=== PATIENT | female | born 1945 | race Caucasian/White ===

== ENCOUNTER 2016-11-09 08:36 | Day surgery (SDC) | payer MEDICARE ==
[2016-11-09] VITALS (8 sets, daily range): BP systolic 106–132; BP diastolic 44–84; PULSE 52–72; RESP 12–18; O2SAT 93–99
[~2016-11-09] VITALS: Ht 162.6 cm; Wt 81.6 kg
[~2016-11-09 08:36] MED LIST: ACET-171 PO; ATOR80TA PO; CALC-78 PO; CHOL100045 PO; CeFAZolin Inj 2 GM in IV Premix 1 EACH IV ONE; FLUO20CA25 PO; LEVO137T2 PO; LISI-571 PO; METF500T4 PO; OMEP20CA11 PO; OXYB10TA PO
[2016-11-09] MEDS ORDERED: MetoCLOpramide 5 mg/mL 2 mL Inj ONE (08:37)
[2016-11-09] MEDS ORDERED: Ondansetron 2 mg/mL 2 mL Inj ONE (08:37)
[2016-11-09] MEDS ORDERED: Propofol 10,000 mCg/mL 20 mL Inj ONE (08:37)
[2016-11-09] MEDS ORDERED: fentaNYL-PF 50 mCg/mL 2 mL Inj ONE (08:37)
[2016-11-09] MEDS: Lactated Ringer's 1,000 ML IV SCH ×2 (08:40→10:31)
[2016-11-09] MEDS ORDERED: Lactated Ringer's 500 ML IV PRN (10:21)
[2016-11-09] MEDS ORDERED: Lactated Ringer's 1,000 ML IV SCH (10:21)
--- NOTE | 2016-11-09 10:21 | PCM.HPANE ---
Patient Data Surgeon Admitting Provider: Attending Provider:Asad Pereira MD Primary Care Physician:Beena Aguero MD Other Provider:Helena Corcoraningham Anesthesia Reason for Visit Right Breast Atpyical Lobular Hyperplasia Ht/WT & BMI Height (Feet): 5 Height (Inches): 4.00 Weight (Kilograms): 81.647 Body Mass Index 30.00 Allergies Coded Allergies: No Known Allergies (Verified Allergy, Mild, 11/08/16) Past Anesthesia History Anesthesia History: Denies:: Abnormal Airway, Anesthesia Reactions, Difficult Intubation, Fam Anesthesia Reaction, Fam Malignant Hypertherm, Malignant Hyperthermia Diabetes History Hx Diabetes?: Yes Type of Diabetes: Type II Glycemic Control: Oral Medication Current Bedside Blood Glucose: 105 MRSA MRSA: No Medications Hypertension Medication: Yes (LISINOPRIL) Home Meds Incl Beta Madeline: No Reported Medications Cholecalciferol (Vitamin D3) (Vitamin D)1,000 Unit Capsule2,000 Unit PO DAILY # 1 BOTTLE Ref 0 11/08/16 Acetaminophen 500 Mg [id number] Mg PO Q6H PRN For Pain 11/08/16 Oxybutynin Chloride ER 10 Mg Tab.er.2410 Mg PO DAILY Ref 0 11/08/16 Fluoxetine 20 Mg Uivckve48 Mg PO DAILY Ref 0 11/08/16 Calcium Carbonate/Vitamin D3 (Calcium 500 + Vit D Caplet)1 Each Tablet1 Each PO DAILY 11/08/16 Atorvastatin (Lipitor)80 Mg Yckdkv40 Mg PO DAILY Ref 0 11/08/16 Lisinopril 5 Mg Tablet5 Mg PO DAILY #30 TABLET Ref 0 06/27/16 Levothyroxine 137 Mcg Ztgjka319 Mcg PO DAILY Ref 0 06/26/16 Metformin 500 Mg Pflpci834 Mg PO BID Ref 0 TAKES 500MG IN AM; 1000MG IN PM 06/26/16 Discontinued Reported Medications Omeprazole 20 Mg Capsule.dr20 Mg PO DAILY Ref 0 11/08/16 Oxybutynin-Expunged Drug, Do Not Renew! (Ditropan-Expunged Drug, Do Not Renew!) 5 Mg Tablet5 Mg PO DAILY 01/19/10 Omeprazole-Expunged Drug, Do Not Renew! 20 Mg Tablet.dr20 Mg PO DAILY 01/19/10 Simvastatin-Expunged Drug, Choose New Med! 80 Mg Juhkew32 Mg PO DAILY 01/19/10 FLUoxetine-Expunged Drug, Do Not Renew! 20 Mg Yycnbpn43 Mg PO DAILY 01/19/10 History HEENT History: Denies:: Abnormal Airway Difficult Intubation Hearing Problem Other HEENT Pertinent History: S/P EXTRAOCULAR MUSCLE SURGERY,ORBITAL DECOMPRESSION FOR GRAVES DISEASE Hx of Heart Problems?: Yes Cardiovascular History: Positive for:: Hypertension (HYPERLIPIDEMIA) Denies:: Heart Murmur Hx of Respiratory Problem?: No Respiratory History: Positive for:: Dyspnea (FERGUSON) Use of C-PAP Machine (JEANETTE+ W/ CPAP SLEEP STUDY 05/2009) Hx Neurologic Problems?: Yes Neurological History: Denies:: CVA Other Neurological Pertinent: PLMD/RLS Hx of GI Problems?: Yes Gastrointestinal History: Positive for:: Gastroesphageal Reflux Rectal Bleeding (HX OF COLON POLYP) Other GI Pertinent History: S/P APPY Hx of Problems?: Yes Female Hx: Positive for:: Problems with Breasts? (S/P RT BREAST BX) Denies:: Currently (S/P DX LAP FOR OVARIAN CYST) Skin History: Positive for:: History Skin Disorders? (psoriasis/HANDS) Denies:: Pressure Ulcers Hx Musculoskeletal Problems?: Yes Musculoskeletal History: Denies:: Joint Replacement Hx of Psycho/Social Problems?: Yes Psycho Social History: Positive for:: Anxiety Hx Depression Hx Surgeries?: Yes (L4-5 DECOMPRESSION,APPY,EYE MUSCLE SURG.,ORBITAL DECOMP., DX LAP,RT BREAST B) Hx Any Other Health Problems?: Yes Other History: Positive for:: Thyroid Disease (GRAVES DISEASE S/P RADIOACTIVE IODINE ABLATION) Denies:: Cancer Endocrine Disease Hospitalization History Blood Transfusions: Positive for:: Blood Transfusions Hx Diabetes: YesBedside Blood Glucose: 105 Hx Alcohol Use: YesAlcoholic Drinks Per Day: 1-2/DAY Smoking Status: Former Smoker Have You Smoked inLast 12 mo: No Stop/Bang Treated for Sleep Apnea?: Yes Do You Have a CPAP Machine?: Yes S-Snoring: Do You Snore Loudly: No T-Tired: feel tired, fatigued: No O-Obsered: Observed not breath: Yes P-Blood Pressure: treated: Yes B- Body Mass Index > 35 kg/m2: No A- Age over 50: Yes N- Neck Large Circumference: No G- Gender Male: No JEANETTE Total Score: 3 JEANETTE Risk Assessment: High Risk, =/>3 Yes Risk Assessment Category Category 1A: Patient has history of documented sleep apnea, and HAS NOT received any narcotic, sedative or anesthesia administration during this stay. Category 1B: Patient has history of documented sleep apnea, and HAS received any narcotic , sedative or anesthesia administration during this stay Category 2: Patient has SUSPECTED Obstructive Sleep Apnea, and HAS received any narcotic , sedative or anesthesia administration during this stay. Category 3: Patient has SUSPECTED Obstructive Sleep Apnea and HAS NOT received narcotic, sedative or anesthesia administration during this stay. Category 4: Outpatient in Procedural Areas with known sleep apnea or who screen positive for High Risk via the STOP/BANG questionnaire. Exam Exam Vital Signs Vital Signs Date Time Temp Pulse Resp B/P Pulse Ox O2 Delivery O2 Flow Rate FiO2 11/09/16 09:13 36.2 52 18 132/56 98 Room Air 11/09/16 09:13 CPAP/BIPAP General Appearance: Oriented X3 HEENT/AIRWAY: MP 2 Lungs: Normal Air Movement Heart: Regular Rate/Rhythm Meds/Labs/Diagnostics Admission Meds Current Medications Lactated Ringer's (Lr) 1,000 ml @ 120 mls/hr Q8H20M IV Last administered on t 08:40; Start 11/09/16 at 05:00; Stop 11/09/16 at 13:19 Bedside Blood Glucose: 105 Plan Impression Patient chart reviewed, patient interviewed and anesthestic plan with risks, benefits, and alternatives discussed, and informed consent obtained. NPO Status: water 6am ASA Physical Status: ASA2 Mod Systemic Disease Anesthetic Plan: GA Bene/Risks/Altern/Consents: Yes HP Complete Prior to Induction: Yes Shiva Tapia MD Nov 09, 2016 10:21
[2016-11-09] MEDS ORDERED: Ondansetron 2 mg/mL 2 mL Inj IVPUSH PRN (10:25)
[2016-11-09] MEDS ORDERED: MetoCLOpramide 5 mg/mL 2 mL Inj IVPUSH PRN (10:25)
[2016-11-09] MEDS ORDERED: EPHEDrine Sulfate 50 mg/mL Inj IVPUSH PRN (10:25)
[2016-11-09] MEDS ORDERED: HYDROmorphone 1 mg/mL Inj IVPUSH PRN (10:25)
[2016-11-09] MEDS ORDERED: Dexamethasone 4 mg/mL Inj IVPUSH PRN (10:25)
[2016-11-09] MEDS ORDERED: fentaNYL-PF 50 mCg/mL 2 mL Inj IVPUSH PRN (10:25)
[2016-11-09] MEDS ORDERED: Phenylephrine 10,000 mCg/mL Inj IVPUSH PRN (10:25)
[2016-11-09] MEDS ORDERED: Bupivacaine-MPF 0.5% W/EPI 30 mL Inj INFILTRATE ONE (10:30)
[2016-11-09] MEDS ORDERED: HYDROcodone-APAP 5-325 mg Tablet PO PRN (11:35)
[2016-11-09] MEDS ORDERED: Ketorolac 15 mg/mL Inj IVPUSH PRN (11:35)
--- NOTE | 2016-11-09 11:35 | PCM.DISURG ---
Surgical Discharge Instruction Date of Service Nov 09, 2016 Dates of Hospitalization Date of Hospital Admission Providers Admitting Physician: Primary Care Physician: Beena Aguero MD Attending Physician: Asad Pereira MD Discharge Diagnosis Discharge Diagnosis Right breast atypical lobular hyperplasia Diet Discharge Diet: Diabetic Activity Discharge Activity-General: No restrictions, Activity as pain allows Dressing and Incisional Care Dressing Care: Allow Steri Stripes to fall off, Remove outer dressing after 24 hrs Hygiene: May shower after (24 hours) Follow Up Plan Follow Up Plan With Dr. Pereira in surgery clinic in 2 weeks Call your provider for: Fever (over 101.5), Discharge @ incision, pus discharge Asad Pereira MD Nov 09, 2016 11:35
--- NOTE | 2016-11-09 11:39 | PCM.SURGOP ---
Surgical Operative Report Date of Service: Nov 09, 2016 Pre Operative Diagnosis Right breast atypical lobular hyperplasia Post Operative Diagnosis Same Procedure: Wire localized right partial mastectomy Surgeon and Associate Marketing Manager: Surgeon: Asad Pereira MD Assistants: Livan Angelo PA-C Indication for Procedure 71-year-old woman who had new clustered heterogeneous calcifications in the right breast 11:00 posterior depth. Stereotactic biopsy demonstrated fibrocystic change and atypical lobular hyperplasia. After discussion of risks and benefits, she agreed to proceed with wire localized right partial mastectomy to rule out underlying malignancy. Findings: The clip was successfully localized. Procedure Details Preoperatively, the patient underwent wire localization in the breast [facility]. She was then brought to the operating room where she underwent smooth induction of general anesthesia with an LMA. She was placed in the supine position with the right arm out, and was prepped and draped in wide sterile fashion. A procedural pause was performed according to the SCOAP checklist, and all were found to be in agreement. A transverse incision was made, just medial to the wire in the upper outer quadrant of the right breast. Skin flaps were raised superiorly and inferiorly. Circumferential dissection was carried out with electrocautery, using the wire as a guide. The wire was encountered superficial to the lesion, but the tip of the wire was not encountered during dissection. Right breast tissue was dissected free, oriented with suture, and a specimen radiograph was obtained. This demonstrated that the clip had been successfully localized. That tissue was sent for permanent pathology. The cavity was marked with hemoclips circumferentially. The breast parenchyma was closed with interrupted 3-0 Vicryl suture. The skin incision was closed with a running 4-0 Vicryl subcuticular stitch. Steri-Strips and sterile dressings were applied. At the end of the case all needle and sponge counts were correct 2. The patient was awakened from anesthesia without difficulty, and taken to the recovery room in satisfactory condition, having tolerated the procedure well. Complications There were no periprocedural complications identified. Surgical Specimen Removed: Yes Specimen sent to Pathology: Yes Surgical Specimen description: Right breast tissue. Anesthetic Plan: GA Grafts, Implants: None Output, Estimated Blood Loss: 30 Blood Administration during medina: No Drains: None Catheters: None copies to: Beena Aguero MD, Joshua D MD Nov 09, 2016 11:39
--- NOTE | 2016-11-09 12:31 | PCM.ANEP1 ---
Post Anesthesia Phase 1 PACU Phase 1 Assessment Date of Service: Nov 09, 2016 Vital Signs Vital Signs Date Time Temp Pulse Resp B/P Pulse Ox O2 Delivery O2 Flow Rate FiO2 11/09/16 12:01 36.0 69 15 106/44 94 Room Air 11/09/16 11:54 36.4 70 13 110/44 97 Room Air 11/09/16 11:45 66 13 107/45 99 Simple Mask 8 11/09/16 11:40 68 14 107/44 99 Simple Mask 8 11/09/16 11:35 72 13 115/46 99 Simple Mask 8 11/09/16 11:30 36.2 63 12 124/44 99 Simple Mask 8 11/09/16 09:13 36.2 52 18 132/56 98 Room Air 11/09/16 09:13 CPAP/BIPAP Anesthetic Administered: GA Level of Alertness: Awake, talking Pain: No Nausea or Vomiting: No Oxygen Delivery: Room Air Lungs: Normal Air Movement Shiva Tapia MD Nov 09, 2016 12:31
--- NOTE | 2016-11-09 12:31 | PCM.ANEP2 ---
Post Anesthesia Evaluation ASA/CMS Post Anesthesia VS in Patient's Normal Range?: Yes Resp Stable; Airway Patent?: Yes CV Function & Hydration Stable: Yes Mental Status Recovered?: Yes Pain control Satisfactory?: Yes N/V Control Satisfactory?: Yes Shiva Tapia MD Nov 09, 2016 12:31
--- NOTE | 2016-11-12 07:20 | DRSVH ---
SPECIMEN RIGHT BREAST: 11/09/2016 CLINICAL: Breast specimen. Correlation is made to exams dated: 11/09/2016 mammogram, 09/12/2016 stereotactic biopsy, 09/04/2016 marjorie mogram, 08/29/2016 mammogram, 08/22/2015 mammogram, and 09/12/2016 specimen - [facility]. A stereotactic guided biopsy specimen was imaged for the previous biopsy site located in the right b reast at 11 o'clock anterior depth. IMPRESSION: SPECIMEN The imaged specimen includes a biopsy clip and the distal portion of the localization wire. This exam was interpreted at Station ID: [id number]. Randa Guy M.D. lk/:11/09/2016 14:22:32 Additional referring physicians: WALTER ESCALERA BARBARA J. HAHBA
--- NOTE | 2016-11-12 13:13 | PATH ---
SURGICAL PATHOLOGY Attending Physician:David Kelly CASE STATUS: Signed Out PATIENT NAME: LINWOOD BALDWIN PID: [id number] : 1945 DATE COLLECTED:11/09/2016 20:49 SPECIMEN: Breast mass, oriented CLINICAL HISTORY: RIGHT BREAST ATYPICAL LOBULAR HYPERPLASIA 1). RIGHT BREAST TISSUE, SHORT SUTURE SUPERIOR, LONG SUTURE LATERAL FINAL DIAGNOSIS: Right Breast Needle Localization Excisional Specimen: Inflammatory and fibrotic changes consistent with previous biopsy. Multifocal areas of duct epithelial hyperplasia and lobular epithelial hyperplasia, usual type, negative for significant atypia. Multifocal areas of adenosis. Microcalcifications associated with benign ducts, epithelial hyperplasia and adenosis. ICD10 N60.81 GROSS DESCRIPTION: The specimen is received in formalin labeled with the patient's name and "right breast tissue-short suture superior, long-lateral" and consists of a 32.4 gram lumpectomy specimen oriented with a short suture designating superior and a long suture designating lateral. The specimen measures 6.0 cm medial to lateral by 4.2 cm superior to inferior by 2.7 cm anterior to posterior. A needle localization wire is in placed in the anterolateral portion of the specimen. The specimen is inked as follows: purple-anterior; yellow-posterior; black-superior; orange-inferior; green-medial; blue-lateral. The specimen is serially sectioned from medial to lateral into 11 slices to reveal benson-white tissue intermixed with fatty tissue spanning slices 4-11. No discrete lesion is identified. The needle localization wire is in placed in slice 4. Possible biopsy site changes are identified in slices 7 and 8. The specimen is entirely submitted as follows: A-slice 1; B-slice 2; C-D-slice 3; E-F-slice 4; G-H- slice 5; I-J-slice 6; K-L-slice 7; M-N-slice 8; O-P- slice 9; Q-R-slice 10; S-slice 11. Note: Approximate fixation time of 50 hours using a collection time of 11/09/2016 at 12:00. (PAMELA:[id number]) ICD-9 CODES: CPT CODES: 1: 49904 Electronically Signed Out Sim Thompson MD [facility] [address], [place] [address] Technical component performed at [facility], [address], [place], [address]
== END 2016-11-09 23:59 | disposition home or self-care (01) ==
LOC: SAS 08:36
PROVIDERS: ATTEND Student in an Organized Health Care Education/Training Program
DX: N60.91 Unspecified benign mammary dysplasia of right breast (principal); N60.21 Fibroadenosis of right breast; D24.9 Benign neoplasm of unspecified breast; E11.9 Type 2 diabetes mellitus without complications; Z79.84 Long term (current) use of oral hypoglycemic drugs; I10 Essential (primary) hypertension; G47.33 Obstructive sleep apnea (adult) (pediatric)
CPT/HCPCS: 19301; 76098; 88307; J0690; J2405; J2765; J3010; J7120